=== PATIENT | male | born 1930 | race Asian ===

== ENCOUNTER 2018-09-21 04:07 | Emergency (ER) | payer MEDICAID ==
[~2018-09-21] VITALS: Ht 165.1 cm; Wt 59.0 kg
[~2018-09-21 04:07] MED LIST: AMLODIPINE BESYL5 MG ORAL; ASPIR-LOW81 MG PO; SIMVASTATIN20 MG PO; VENTOLIN HFA18 GM INH; ZESTRIL20 MG PO
--- NOTE | 2018-09-21 04:12 | Emergency Room Report ---
History of Present Illness General Chief Complaint: To Be Triaged Source: Patient, Family Member (Mario Stewart MD) Present Illness HPI This is an 88-year-old male with a history of CAD, heart valve replacement and high blood pressure. He presents with chief complaint of nausea vomiting and short of breath. Onset tonight. 2 episode vomiting. No fever or chills. No diarrhea. Does have some abdominal pain. Short of breath after vomiting. Denies any other complaint. (Mario Stewart MD) Allergies: Coded Allergies: No Known Allergies (Unverified , 05/22/12) Patient History Past Medical History: see triage record, old chart reviewed, HTN, CAD Past Surgical History: other - Heart Valve surgery Pertinent Family History: other Social History: Denies: smoking Immunizations: other Reviewed Nursing Documentation: PMH: Agreed; PSxH: Agreed (Mario Stewart MD) Nursing Documentation-PMH Hx Cardiac Problems: Yes Hx Hypertension: Yes Hx Asthma: Yes Hx Diabetes: No Hx Cancer: No Hx Gastrointestinal Problems: No Hx Neurological Problems: Yes Hx Vertigo: Yes Hx Dizziness: Yes Hx Syncope: Yes Hx Headaches: Yes Hx Weakness: Yes Hx Fatigue: Yes (Mario Stewart MD) Review of Systems Eye: Denies: eye pain, blurred vision ENT: Denies: ear pain, nose congestion, throat swelling Respiratory: Reports: shortness of breath; Denies: cough Cardiovascular: Denies: chest pain, palpitations Gastrointestinal: Reports: abdominal pain, nausea, vomiting; Denies: diarrhea Musculoskeletal: Denies: back pain, joint pain Skin: Denies: rash Neurological: Denies: headache, numbness Endocrine: Denies: increased thirst, increased urine Hematologic/Lymphatic: Denies: easy bruising All Other Systems: negative except mentioned in HPI (Mario Stewart MD) Physical Exam vitals unremarkable Sp02 EP Interpretation: reviewed, normal General Appearance: no apparent distress, alert, thin, Chronically Ill Head: normocephalic, atraumatic Eyes: bilateral eye PERRL, bilateral eye EOMI ENT: hearing grossly normal, dry mucus membranes Neck: full range of motion, supple, no meningismus Respiratory: chest non-tender, lungs clear, normal breath sounds Cardiovascular #1: regular rate, rhythm, systolic murmur - 3/6 Gastrointestinal: normal bowel sounds, non tender, no mass, no organomegaly, no bruit, non-distended Musculoskeletal: back normal, gait/station normal, normal range of motion Psychiatric: mood/affect normal Skin: warm/dry (Mario Stewart MD) Procedures Critical Care Time Critical Care Time Critical care is mandated in this patient who presented with severe hyperglycemia, dehydration, and hyperkalemia. Patient require my urgent intervention to attenuate the risks of metabolic collapse which may lead to cardiovascular collapse and . Critical care time is 35 minutes excluding any reportable procedure. Critical care time included evaluation, multiple reevaluation, looking at old charts, interpreting laboratory and diagnostic data , discussing case with patient and family and consultants, and charting. (Mario Stewart MD) Medical Decision Making Diagnostic Impression: Primary Impression: Hyperosmolar non-ketotic state in patient with type 2 diabetes mellitus Additional Impressions: ARF (acute renal failure) Qualified Codes: N17.9 - Acute kidney failure, unspecified Dehydration Abdominal pain Qualified Codes: R10.84 - Generalized abdominal pain Hyperkalemia ER Course Patient presents with hyperosmolar hyperglycemic state. No evidence of DKA. He also show evidence of severe dehydration with acute renal failure. Patient given IV fluid and insulin. We'll repeat labs. No evidence of peaked T waves on EKG. Vitals are stable. Patient will be admitted versus transfer based on his insurance. Lab Results Impression labs with elevated glucose (Mario Stewart MD) ER Course Hospital Course 88-year-old male presenting to ED with generalized weakness, vomiting Clinical course Patient initially seen and evaluated by Dr. Stewart; please see his note for full history and physical Labs-glucose greater than 1100, no anion gap elevation, bicarbonate ok, K elevated CT A/P - no acute process identified. renal cysts noted Insulin given, IV fluids given, Because of insurance patient will be transferred i. I feel this is a highly complex case requiring extensive working including EKG/Rhythm strip, Xray/CT/US, Blood/urine lab work, repeat exams while in ED, and administration of strong opiates/narcotics for pain control, admission to hospital or close patient follow up. diagnosis - hyperolsmolar nonketotic state, ARF, dehydration, abdominal pain, hyperkalemia transferred in serious condition Labs Test 09/21/18 04:15 09/21/18 06:25 White Blood Count 7.3 K/UL (4.8-10.8) Red Blood Count 5.01 M/UL (4.70-6.10) Hemoglobin 15.5 G/DL (14.2-18.0) Hematocrit 49.1 % (42.0-52.0) Mean Corpuscular Volume 98 FL (80-99) Mean Corpuscular Hemoglobin 30.9 PG (27.0-31.0) Mean Corpuscular Hemoglobin Concent 31.6 G/DL (32.0-36.0) Red Cell Distribution Width 11.6 % (11.6-14.8) Platelet Count 139 K/UL (150-450) Mean Platelet Volume 8.2 FL (6.5-10.1) Neutrophils (%) (Auto) 75.1 % (45.0-75.0) Lymphocytes (%) (Auto) 18.5 % (20.0-45.0) Monocytes (%) (Auto) 5.3 % (1.0-10.0) Eosinophils (%) (Auto) 0.3 % (0.0-3.0) Basophils (%) (Auto) 0.9 % (0.0-2.0) Prothrombin Time 9.5 SEC (9.30-11.50) Prothromb Time International Ratio 0.9 (0.9-1.1) Activated Partial Thromboplast Time 23 SEC (23-33) Urine Color Pale yellow Urine Appearance Clear Urine pH 5 (4.5-8.0) Urine Specific [place] 1.010 (1.005-1.035) Urine Protein 1+ (NEGATIVE) Urine Glucose (UA) 4+ (NEGATIVE) Urine Ketones Negative (NEGATIVE) Urine Blood Negative (NEGATIVE) Urine Nitrite Negative (NEGATIVE) Urine Bilirubin Negative (NEGATIVE) Urine Urobilinogen Normal MG/DL (0.0-1.0) Urine Leukocyte Esterase Negative (NEGATIVE) Urine RBC 0 /HPF (0 - 0) Urine WBC 0 /HPF (0 - 0) Urine Squamous Epithelial Cells Occasional /LPF Urine Bacteria None /HPF (NONE) Sodium Level 127 MMOL/L (136-145) Potassium Level 6.1 MMOL/L (3.5-5.1) Chloride Level 88 MMOL/L (98-107) Carbon Dioxide Level 31 MMOL/L (21-32) Anion Gap 8 mmol/L (5-15) Blood Urea Nitrogen 45 mg/dL (7-18) Creatinine 2.3 MG/DL (0.55-1.30) Estimat Glomerular Filtration Rate mL/min (>60) Glucose Level 1133 MG/DL (74-106) Calcium Level 10.1 MG/DL (8.5-10.1) Total Bilirubin 1.0 MG/DL (0.2-1.0) Aspartate Amino Transf (AST/SGOT) 38 U/L (15-37) Alanine Aminotransferase (ALT/SGPT) 48 U/L (12-78) Alkaline Phosphatase 112 U/L (46-116) Total Creatine Kinase 207 U/L (26-308) Creatine Kinase MB 2.8 NG/ML (0.0-3.6) Creatine Kinase MB Relative Index 1.3 Troponin I 0.023 ng/mL (0.000-0.056) Pro-B-Type Natriuretic Peptide 681 pg/mL (0-125) Total Protein 8.8 G/DL (6.4-8.2) Albumin 4.9 G/DL (3.4-5.0) Globulin 3.9 g/dL Albumin/Globulin Ratio 1.3 (1.0-2.7) (Hoang Molina MD) EKG Diagnostic Results Rate: normal Rhythm: NSR ST Segments: other - NSST changes (Mario Stewart MD) Rhythm Strip Diag. Results EP Interpretation: yes Rate: 82 Rhythm: NSR, no PVC's, no ectopy (Mario Stewart MD) Chest X-Ray Diagnostic Results Chest X-Ray Diagnostic Results : Chest X-Ray Ordered: Yes # of Views/Limited/Complete: 1 View Indication: Shortness of Breath EP Interpretation: Yes Interpretation: no consolidation, no effusion, no pneumothorax, no acute cardiopulmonary disease Impression: No acute disease Electronically Signed by: Mario Stewart MD (Mario Stewart MD) CT/MRI/US Diagnostic Results CT/MRI/US Diagnostic Results : Imaging Test Ordered: CT abdomen and pelvis Impression no acute process per radiologist (Mario Stewart MD) CT/MRI/US Diagnostic Results : Imaging Test Ordered: CT A/P Impression No acute abnormality in the abdomen or pelvis. Bilateral renal cysts and 2 cm indeterminate lesion on the left, likely hyperdense cyst versus neoplasm. This can be further characterized with ultrasound, renal mass protocol CT or MRI. (Hoang Molina MD) Status: improved (Mario Stewart MD) Status: improved (Hoang Molina MD) Disposition: XFER SHT-TRM HOSP Condition: Serious Mario Stewart MD September 21, 2018 04:12 Hoang Molina MD September 21, 2018 07:21
[2018-09-21] MEDS ORDERED: COREG3.125 MG ORAL (04:22)
[2018-09-21] MEDS ORDERED: PREDNISOLO15 MG/5 M1 ORAL (04:22)
[2018-09-21] MEDS ORDERED: BUMETANIDE0.25 MG/1 IJ (04:22)
[2018-09-21] MEDS ORDERED: LIPITOR80 MG ORAL (04:22)
[2018-09-21] MEDS ORDERED: AMIODARONE HCL100 MG ORAL (04:22)
[2018-09-21 04:28] VITALS: BP 157/67
--- NOTE | 2018-09-21 04:32 | NUR ---
ED Nurse Note: Patient walked in to ER with his family from home c/o SOB. Per patient's son he can not eat or drink x3 days. AAO x4, VSS at this time, skin is very dry, intact, warm to touch.
[2018-09-21 04:44] LABS: APPEARANCE,URINE CLEAR; BASOPHILS % (AUTO) 0.9 % (0.0-2.0); BILIRUBIN, URINE NEGATIVE (NEGATIVE); COLOR,URINE PALE YELLOW; EOSINOPHILS % (AUTO) 0.3 % (0.0-3.0); GLUCOSE, URINE (UA) 4+ (NEGATIVE); HEMATOCRIT 49.1 % (42.0-52.0); HEMOGLOBIN 15.5 G/DL (14.2-18.0); KETONES,URINE NEGATIVE (NEGATIVE); LEUKOCYTE ESTERASE ,URINE NEGATIVE (NEGATIVE); LYMPHOCYTES % (AUTO) 18.5 % (20.0-45.0); MEAN CORPUSCULAR VOLUME 98 FL (80-99); MONOCYTES % (AUTO) 5.3 % (1.0-10.0); NEUTROPHILS % (AUTO) 75.1 % (45.0-75.0); NITRITE,URINE NEGATIVE (NEGATIVE); PH,URINE 5 (4.5-8.0); PLATELET COUNT 139 K/UL (150-450); PROTEIN,URINE 1+ (NEGATIVE); RED BLOOD COUNT 5.01 M/UL (4.70-6.10); RED CELL DISTRIBUTION WIDTH 11.6 % (11.6-14.8); UROBILINOGEN,URINE NORMAL MG/DL (0.0-1.0); WHITE BLOOD COUNT 7.3 K/UL (4.8-10.8)
--- NOTE | 2018-09-21 04:45 | NUR ---
ED Nurse Note: Per patient's son he vomited x2, at home.
[2018-09-21 04:55] LABS: INR 0.9 (0.9-1.1)
[2018-09-21 05:13] LABS: ALANINE AMINOTRANSFERASE 48 U/L (12-78); ALBUMIN 4.9 G/DL (3.4-5.0); ALBUMIN/GLOBULIN RATIO 1.3 (1.0-2.7); ALKALINE PHOSPHATASE 112 U/L (46-116); ANION GAP 8 mmol/L (5-15); ASPARTATE AMINO TRANSFERASE 38 U/L (15-37); BLOOD UREA NITROGEN 45 mg/dL (7-18); CALCIUM 10.1 MG/DL (8.5-10.1); CARBON DIOXIDE 31 MMOL/L (21-32); CHLORIDE 88 MMOL/L (98-107); CKMB 2.8 NG/ML (0.0-3.6); CREATINE KINASE 207 U/L (26-308); CREATININE 2.3 MG/DL (0.55-1.30); SODIUM 127 MMOL/L (136-145)
[2018-09-21 05:17] LABS: POTASSIUM 6.1 MMOL/L (3.5-5.1)
[2018-09-21] MEDS ORDERED: Insulin Human Regular 100units/ml 3ml IV ONE (05:30)
--- NOTE | 2018-09-21 05:35 | NUR ---
ED Nurse Note: patient taken down for CT
[2018-09-21 05:38] VITALS: BP 148/58
--- NOTE | 2018-09-21 06:00 | NUR ---
ED Nurse Note: patient is back from CT
--- NOTE | 2018-09-21 06:05 | NUR ---
ED Nurse Note: Patient's BS still extremely high, ER MD aware.
--- NOTE | 2018-09-21 06:24 | NUR ---
Face sheet, EKG, MDs dictation and clinicals faxed to [facility] @ [phone] as requested by [facility].
--- NOTE | 2018-09-21 07:10 | NUR ---
ED Nurse Note: Performed the Accu check and the result was "Critical high" will wait for the CMP which is pending at this moment.
[2018-09-21 07:13] LABS: ANION GAP 9 mmol/L (5-15); BLOOD UREA NITROGEN 40 mg/dL (7-18); CARBON DIOXIDE 29 MMOL/L (21-32); CHLORIDE 101 MMOL/L (98-107); POTASSIUM 4.1 MMOL/L (3.5-5.1); SODIUM 139 MMOL/L (136-145)
[2018-09-21 07:29] VITALS: BP 137/61
--- NOTE | 2018-09-21 07:33 | NUR ---
ED Nurse Note: FARZANEH Huggins is giving report to [facility] and EMS arrived. pt has no s/s of cardiac or pulmanary distress.
[2018-09-21 07:50] VITALS: BP 128/71
--- NOTE | 2018-09-21 07:51 | NUR ---
ED Nurse Note: Patient left [facility] with 3 EMS and in stable condition. pt aao x4 and able to make needs.
--- NOTE | 2018-09-21 09:42 | Diagnostic Imaging Report ---
Indication: Abdominal pain Technique: Continuous helical transaxial imaging of the abdomen and pelvis was obtained from the lung bases to the pubic symphysis. No intravenous contrast was administered. Coronal 2-D reformats were also obtained. Automatic Exposure Control was utilized. Total Dose length Product (DLP): 591.[address] Dose Index Volume (CTDIvol): 10.14 mGy Comparison: none Findings: Linear densities demonstrated in the visualized portions of the lung bases with areas of cystic hyperlucency indicative of emphysema and fibrosis. Aorta is moderately calcified and diffusely ectatic. There is no pericardial or pleural effusion. The appendix is normal. There are few diverticula in the colon. The bladder is unremarkable. Prostate calcification is present. Bowel gas pattern is nonobstructive. There is no free fluid or ascites. Layering stones noted within the gallbladder. Hypodensities are noted within both kidneys nonspecific and not adequately evaluated on noncontrast CT. Consider ultrasound or follow-up contrast-enhanced CT or MR. There is narrowing of intervertebral discs and accompanying endplate osteophyte formation. Hypertrophied facet joints also demonstrated. IMPRESSION: No acute findings identified. 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 Atherosclerotic disease. Normal appendix Cholelithiasis. Bilateral renal masses versus cysts. Inadequate evaluation. Spondylosis [facility] has communicated the preliminary results to the Emergency Department. Their findings are largely concordant with this report. The CT scanner at [facility] is accredited by the [employer] and the scans are performed using dose optimization techniques as appropriate to a performed exam including Automatic Exposure control.
--- NOTE | 2018-09-21 11:12 | Diagnostic Imaging Report ---
Indication: Dyspnea Comparison: 11/12/2013 A single view chest radiograph was obtained. Findings: No definite infiltrate identified. There is scarring in the right upper lobe which was seen previously. Sternotomy noted. Heart size is normal. Bones are osteopenic. IMPRESSION: No acute disease
--- NOTE | 2018-09-22 19:33 | Cardiology Report ---
APPROVED REPORT EKG Measurement Heart [id number] Normal sinus rhythm Possible Left atrial enlargement Abnormal ECG
== END 2018-09-21 07:50 | disposition short-term general hospital (02) ==
LOC: EMR 04:19 → EDBEDREQ 05:25 → EMR 07:50
DX: E11.00 Type 2 diabetes mellitus with hyperosmolarity without nonketotic hyperglycemic-hyperosmolar coma (NKHHC) (principal); N17.9 Acute kidney failure, unspecified; E86.0 Dehydration; R10.84 Generalized abdominal pain; E87.5 Hyperkalemia; I11.9 Hypertensive heart disease without heart failure; R11.2 Nausea with vomiting, unspecified; E11.65 Type 2 diabetes mellitus with hyperglycemia
CPT/HCPCS: 36415; 71045; 74176; 80048; 80053; 81003; 82550; 82553; 83880; 84484; 85025; 85610; 85730; 93005; 96361; 96374; 96375; 99291; J1815; J2405; J7040